=== PATIENT | male | born 1990 | race African-American/Black ===

== ENCOUNTER 2024-11-07 13:27 | Emergency (ER) | payer BC, OTHER ==
[2024-11-07 13:34] VITALS: RESP 18; TEMP 97.8
--- NOTE | 2024-11-07 14:03 | ED ---
General Adult HPI - General Chief complaint: Neuro Symptoms/Deficit Stated complaint: L side numbness Time Seen by Provider: 11/07/24 13:40 Source: patient, RN notes reviewed Mode of arrival: ambulatory Limitations: no limitations - History of Present Illness Initial comments: 34-year-old male with hypertension presenting to the emergency department with referral from urgent care for concerns of left-sided facial deficits. Patient states that he has a history of Bey's palsy in 2016 and he is never fully recovered from his symptoms at that time. He states that yesterday morning when he woke up he started to have a tingling type of sensation on his tongue and a electrical type of shocking sensation behind his ear that felt similar as when he had Bey's palsy years ago. He states that he felt increasingly weak on the left side of his face. He denies headaches, blurred or double vision, hearing disturbances, chest pain, heart palpitations, dyspnea, peripheral edema, upper or lower extremity weakness. - Related Data Previous Rx's Medication Instructions Recorded predniSONE [Deltasone] 60 mg PO DAILY 6 Days #6 tab 11/07/24 valACYclovir HCL [Valacyclovir] 1,000 mg PO TID #21 tab 11/07/24 Allergies Allergy/AdvReac Type Severity Reaction Status Date / Time No Known Allergies Allergy Verified 11/07/24 13:34 Review of Systems ROS Statement: Those systems with pertinent positive or pertinent negative responses have been documented in the HPI. ROS Other: All systems not noted in ROS Statement are negative. Past Medical History Past Medical History: No Reported History Additional Past Medical History / Comment(s): yaquelin braswell, smoked for 8 years History of Any Multi-Drug Resistant Organisms: None Reported Past Surgical History: No Surgical Hx Reported Past Psychological History: No Psychological Hx Reported Smoking Status: Former smoker Past Alcohol Use History: Occasional, Rare Past Drug Use History: None Reported General Exam Limitations: no limitations Eye exam: Present: normal appearance, PERRL, EOMI. Absent: scleral icterus, conjunctival injection, periorbital swelling ENT exam: Present: normal exam, mucous membranes moist Neck exam: Present: normal inspection. Absent: tenderness, meningismus, lymphadenopathy Respiratory exam: Present: normal lung sounds bilaterally. Absent: respiratory distress, wheezes, rales, rhonchi, stridor Cardiovascular Exam: Present: regular rate, normal rhythm, normal heart sounds. Absent: systolic murmur, diastolic murmur, rubs, gallop, clicks GI/Abdominal exam: Present: soft, normal bowel sounds. Absent: distended, ten derness, guarding, rebound, rigid Extremities exam: Present: normal inspection, full ROM, normal capillary refill. Absent: tenderness, pedal edema, joint swelling, calf tenderness Expanded Patient oriented to: Present: person, place, time Speech: Present: fluid speech Cranial nerves: EOM's Intact: Normal, Facial Palsy without Forehead Movement: Abnormal Left Cerebellar function: Finger to Nose: Normal, Heel to Day: Normal Course Vital Signs 11/07/24 11/07/24 11/07/24 13:29 14:09 14:51 Temperature 97.8 F Pulse Rate 63 66 Respiratory 18 18 Rate Blood Pressure 162/102 147/89 142/87 O2 Sat by Pulse 100 100 Oximetry 11/07/24 15:21 Temperature 97.8 F Pulse Rate 67 Respiratory 18 Rate Blood Pressure 134/83 O2 Sat by Pulse 100 Oximetry Medical Decision Making - Medical Decision Making Was pt. sent in by a medical professional or institution (, PA, ELECTROTHERAPIST, urgent care, hospital, or shelter...) When possible be specific @ -Patient was referred from urgent care with concerns for left-sided facial weakness to rule out CVA or stroke. Did you speak to anyone other than the patient for history (EMS, parent, family, police, friend...)? What history was obtained from this source @ -No Did you review nursing and triage notes (agree or disagree)? Why? @ -I reviewed and agree with nursing and triage notes Were old charts reviewed (outside hosp., previous admission, EMS record, old EKG, old radiological studies, urgent care reports/EKG's, shelter records)? Report findings @ -No old charts were reviewed Differential Diagnosis (chest pain, altered mental status, abdominal pain women, abdominal pain men, vaginal bleeding, weakness, fever, dyspnea, syncope, headache, dizziness, GI bleed, back pain, seizure, CVA, palpatations, mental health, musculoskeletal)? @ -Differential CVA Ischemic stroke, hemorrhagic stroke, brain tumor, atypical migraine, Wernicke's encephalopathy, seizure, multiple sclerosis, meningitis, encephalitis, hypoglycemia, Guillain-Rodríguez, electrolytes disturbance, myasthenia gravis.... This is not meant to be an all-inclusive list EKG interpreted by me (3pts min.). @ -Completed at 1340 sinus rhythm with a ventricular to 61, IA interval 157, QRS 95, QT 384, QTc 388. X-rays interpreted by me (1pt min.). @ -None done CT interpreted by me (1pt min.). @ -None done U/S interpreted by me (1pt. min.). @ -None done What testing was considered but not performed or refused? (CT, X-rays, U/S, labs)? Why? @ -None What meds were considered but not given or refused? Why? @ -None Did you discuss the management of the patient with other professionals (professionals i.e. , PA, ELECTROTHERAPIST, lab, RT, psych nurse, hospital social worker, special education tutor, teacher, branch officer, vocational case manager)? Give summary @ -No Was smoking cessation discussed for >3mins.? @ -No Was critical care preformed (if so, how long)? @ -No Were there social determinants of health that impacted care today? How? (Homelessness, low income, unemployed, alcoholism, drug addiction, transportation, low edu. Level, literacy, decrease access to med. care, [facility], rehab)? @ -No Was there de-escalation of care discussed even if they declined (Discuss DNR or withdrawal of care, Hospice)? DNR status @ -No What co-morbidities impacted this encounter? (DM, HTN, Smoking, COPD, CAD, Cancer, CVA, ARF, Chemo, Hep., AIDS, mental health diagnosis, sleep apnea, morbid obesity)? @ -None Was patient admitted / discharged? Hospital course, mention meds given and route, prescriptions, significant lab abnormalities, going to OR and other pertinent info. @ -Discharge. 34-year-old male presenting to the ER with referral from urgent care for concerns of left-sided weakness. On evaluation patient noted to have left-sided facial palsy without forehead movement. He has left-sided facial droop and is unable to puff of his cheeks. Hearing is intact and sensation is intact. Presenting symptoms are consistent with palsy. Patient is hypertensive on arrival with a blood pressure of 162/102 and EKG is in sinus rhythm. He is provided with his home dose of amlodipine that he has not taken yet today. CT of the brain is unremarkable. Patient's blood pressure has responded to medication and a repeat of 134/83. He is provided with dose of prednisone and outpatient prescription for prednisone and acyclovir for a week. Recommend f roselow-up with primary care provider. Return parameters discussed. Case discussed with attending, Dr. Johnson Undiagnosed new problem with uncertain prognosis? @ -No Drug Therapy requiring intensive monitoring for toxicity (Heparin, Nitro, Insulin, Cardizem)? @ -No Were any procedures done? @ -No Diagnosis/symptom? @ -bells palsy Acute, or Chronic, or Acute on Chronic? @ -acute Uncomplicated (without systemic symptoms) or Complicated (systemic symptoms)? @ -uncomplicated Side effects of treatment? @ -No Exacerbation, Progression, or Severe Exacerbation? @ -No Poses a threat to life or bodily function? How? (Chest pain, [place], [place], pneumonia, PE, COPD, DKA, ARF, appy, cholecystitis, CVA, Diverticulitis, Homicidal, Suicidal, threat to staff... and all critical care pts) @ -No Disposition Clinical Impression: Bey's palsy Disposition: HOME SELF-CARE Condition: Good Instructions (If sedation given, give patient instructions): Bey Palsy (ED) Additional Instructions: Please return to the Emergency Department if symptoms worsen or any other concerns. Prescriptions: predniSONE [Deltasone] 60 mg PO DAILY 6 Days #6 tab valACYclovir HCL [Valacyclovir] 1,000 mg PO TID #21 tab Is patient prescribed a controlled substance at d/c from ED?: No Referrals: Danish Sy MD [Primary Care Provider] - 1-2 days Time of Disposition: 15:01
[2024-11-07] MEDS: amLODIPine 10 MG TAB PO STA (14:07)
--- NOTE | 2024-11-07 14:12 | CT ---
EXAMINATION TYPE: CT brain wo con DATE OF EXAM: 11/07/2024 COMPARISON: None CLINICAL INDICATION: Male, 34 years old with history of hx bells palsy, L sided droop, HTN; PHH, LEFT SIDE NUMBNESS, LEFT SIDED DROOP CT DLP: 1186.4 mGycm Automated exposure control for dose reduction was used. Findings: The ventricles, basal cisterns and sulci over the convexities are within normal limits and there is n o mass effect or shift of midline structures. No abnormal density is seen throughout the brain parenchyma and there is no acute intra or extra-axia l hemorrhage. The posterior fossa including the brainstem, fourth ventricle and cerebellar pontine angles appear no rmal. Intraorbital contents appear normal and symmetric. There is a large mucous retention cyst or polyp in the left maxillary sinus and a few small mucous re tention cysts or polyps in the right maxillary sinus. The calvarium is intact. IMPRESSION: There is no acute bleed or mass effect. Chronic inflammatory changes in the maxillary sinuses [facility], , 11/07/2024 2:09 PM
[2024-11-07] MEDS: predniSONE 20 MG TAB PO STA (14:38)
[2024-11-07 15:22] VITALS: BP 134/83; PULSE 67
== END 2024-11-07 15:23 | disposition home or self-care (01) ==
LOC: EC 13:27
DX: G51.0 Bell's palsy (principal); Z87.891 Personal history of nicotine dependence
CPT/HCPCS: 70450; 99284; J7512